=== PATIENT | female | born 1995 | race Hispanic/Latino ===

== ENCOUNTER 2016-10-22 14:18 | Emergency (ER) ==
[2016-10-22] MEDS ORDERED: ZOFRAN ODT PO ONE (14:56)
[2016-10-22] MEDS ORDERED: TYLENOL PO ONE (14:56)
[2016-10-22 15:05] LABS: MANUAL DIFF NEEDED? NO
--- NOTE | 2016-10-22 15:05 | PROVIDER DOCUMENTATION ---
HPI-General Adult - General Source: patient - History of Present Illness -Gen Adult Nature of Presenting Problems: 21 yo F 14 weeks with second child presents to ED with cc of cough, congestion, nausea, abdominal pain, low-grade fever, and possible flu exposure. Pt reports being on Tamiflu per supervisor [facility] for past 2 days with no relief. Pt states she has not been vomiting and has no vaginal bleeding. She reports some clear, thin vaginal discharge and dysuria. Pt states she is concerned for her and just wants to make sure everything is ok. Upon presentation to ED , pt is in no apparent distress and appears nontoxic. Location of Pain/Injury: reports: abdomen, pelvis Quality of Pain: reports: aching Severity: reports: moderate Onset/Duration: reports: abrupt, 3 days ago Timing: reports: still present Context/Activities at Onset: reports: none Modifying Factors: improves with: nothing Associated Symptoms: reports: cough, fatigue, sinus congestion/drainage, nausea . denies: shortness of breath, pain with inspiration, vomiting Similar Symptoms Previously?: No Recently seen or treated by another doctor?: Yes (OB prescribed tamiflu due to possible flu exposure) <Irene Renner - Last Filed: 10/22/16 15:00> <Rosanna Bradshaw - Last Filed: 10/22/16 16:36> - General Chief Complaint: Flu Symptoms Stated Complaint: FLU/14 WEAK PREG Time Seen by Provider: 10/22/16 14:43 Allergies/Adverse Reactions: Patient Allergies Allergy/AdvReac Type Severity Reaction Status Date / Time No Known Allergies Allergy Verified 01/27/15 20:52 Home Medications: Vit/Fe Fumarate/FA [ 1-1 Tablet] 1 tab PO DAILY 01/27/15 Review of Systems - Adult - REVIEW OF SYSTEMS - ADULT Constitutional: reports: fever (~99 at home; 99.5 ED). denies: chills Eyes: reports: no symptoms reported. denies: discharge, dry eyes Ears, Nose, Mouth & Throat: reports: no symptoms reported. denies: ear discharge, ear pain Cardiovascular: reports: no symptoms reported. denies: chest pain, edema Respiratory: reports: cough. denies: shortness of breath, wheezing Gastrointestinal: reports: abdominal pain, nausea. denies: vomiting Genitourinary: reports: dysuria, discharge (clear, thin) Musculoskeletal: reports: no symptoms reported. denies: bone pain, back pain Integumentary: reports: no symptoms reported. denies: hives, itching Neurological: reports: no symptoms reported. denies: ataxia, dizziness/vertigo Psychiatric: reports: no symptoms reported. denies: anxiety, depression Endocrine: reports: no symptoms reported. denies: cold intolerance, heat intolerance Hematologic/Lymphatic: reports: no symptoms reported. denies: blood clots, easy bruising Allergic/Immunologic: reports: no symptoms reported. denies: allergic reactions , eczema All Other Systems: Reviewed and Negative <Irene Renner - Last Filed: 10/22/16 15:00> Past History - Adult - PAST MEDICAL HISTORY-ADULT Review of Records: reports: Old Records Reviewed, Nursing Assessment Review, Medications Reviewed Major Childhood Illnesses: reports: denies history Cardiovascular: reports: denies history Respiratory: reports: denies history Gastrointestinal: reports: denies history Obstetrical/Gynecological: reports: denies history Genitourinary: reports: denies history Musculoskeletal: reports: denies history Neurological: reports: headaches/migraines Endocrine/Immune: reports: denies history Other Conditions: reports: denies history - IMMUNIZATION STATUS Childhood Immunizations: See Nurse Assessment Flu Vaccine: See Nurse Assessment - FAMILY HISTORY Family History: reviewed, not pertinent <Irene Renner - Last Filed: 10/22/16 15:00> Physical Exam-General - PHYSICAL EXAM-ADULT Initial Vital Signs Reviewed: Yes - CONSTITUTIONAL General Appearance: appears well, alert, no apparent distress - EYES Eyes: PERRL/EOMI, pink conjunctivae - HEAD, EARS, NOSE, MOUTH & THROAT HENMT: normocephalic/atraumatic, moist mucous membranes, normal ENT inspection, TMs normal - NECK Neck: non-tender, full range of motion, supple - RESPIRATORY Respiratory: chest non-tender, lungs clear, normal breath sounds - CARDIOVASCULAR Cardiovascular: normal peripheral pulses, regular rate, rhythm - GASTROINTESTINAL (ABDOMEN) Abdominal Exam: normal bowel sounds, non tender, soft, no organomegaly, tenderness (suprapubic) - GENITOURINARY Female Genitalia/Pelvic Exam: deferred - LYMPHATIC Lymphatic: no adenopathy - MUSCULOSKELETAL Back Exam: normal inspection, no CVA tenderness, no vertebral tenderness Extremity: normal range of motion, non-tender, normal gait - SKIN Integumentary: normal color, normal turgor, warm/dry - NEUROLOGIC Neurologic: grossly normal, no motor/sensory deficits - PSYCHIATRIC Psych/Mental Status: normal mood/affect, normal thought content, normal thought process, oriented x 3 <Irene Renner - Last Filed: 10/22/16 15:00> Progress - PLAN OF CARE/RESULTS Progress/Plan/Lab Results: Vital Signs Temp Pulse Resp BP Pulse Ox 10/22/16 14:22 99.5 F 128 H 18 124/61 100 No Known Allergies Allergy (Verified 01/27/15 20:52) Vit/Fe Fumarate/FA [ 1-1 Tablet] 1 tab PO DAILY 01/27/15 Ondansetron [Zofran] 4 mg PO Q6H PRN PRN #20 tablet 09/30/15 Laboratory 10/22/16 10/22/16 10/22/16 15:00 15:00 15:00 WBC 7.57 RBC 4.27 Hgb 12.1 Hct 34.8 L MCV 81.5 MCH 28.3 MCHC 34.8 RDW Std Deviation 13.7 Plt Count 227 MPV 9.7 Immature Gran % (Auto) 0.1 Neut % (Auto) 90.1 H Lymph % (Auto) 4.2 L Ashley % (Auto) 5.4 Eos % (Auto) 0.1 Baso % (Auto) 0.1 Immature Gran # (Auto) 0.01 Neut # (Auto) 6.81 H Lymph # (Auto) 0.32 L Ashley # (Auto) 0.41 Eos # (Auto) 0.01 Baso # (Auto) 0.01 Sodium 133 L Potassium 3.3 L Chloride 100 Carbon Dioxide 23 L Anion Gap 10 BUN 4 L Creatinine 0.4 L Estimated GFR/1.73 m2 > 60 BUN/Creatinine Ratio 10 Glucose 102 Calculated Osmolality 263 Calcium 9.2 Total Bilirubin 0.30 AST 13 ALT 8 L Alkaline Phosphatase 62 Total Protein 7.5 Albumin 3.9 Globulin 4.0 Albumin/Globulin Ratio 1.0 Ser , Semi-Qnt 30712.0 Influenza A (Rapid) Influenza B (Rapid) 10/22/16 14:27 WBC RBC Hgb Hct MCV MCH MCHC RDW Std Deviation Plt Count MPV Immature Gran % (Auto) Neut % (Auto) Lymph % (Auto) Ashley % (Auto) Eos % (Auto) Baso % (Auto) Immature Gran # (Auto) Neut # (Auto) Lymph # (Auto) Ashley # (Auto) Eos # (Auto) Baso # (Auto) Sodium Potassium Chloride Carbon Dioxide Anion Gap BUN Creatinine Estimated GFR/1.73 m2 BUN/Creatinine Ratio Glucose Calculated Osmolality Calcium Total Bilirubin AST ALT Alkaline Phosphatase Total Protein Albumin Globulin Albumin/Globulin Ratio Ser , Semi-Qnt Influenza A (Rapid) NEGATIVE Influenza B (Rapid) NEGATIVE Orders Category Date Time Status FHT [ Heart Tones] NOW Care 10/22/16 14:53 Active CBC WITH ELECTRONIC DIFF [HEME] Stat Lab 10/22/16 15:00 Completed COMPREHENSIVE METABOLIC PANEL [CHEM] Stat Lab 10/22/16 15:00 Completed Flu [INFLUENZA SCREEN PL] Stat Lab 10/22/16 14:27 Completed QUANT TEST Stat Lab 10/22/16 15:00 Completed Acetaminophen [Tylenol] Med 10/22/16 14:56 Discontinued 500 mg PO NOW ONE Ondansetron Odt [Zofran Odt] Med 10/22/16 14:56 Discontinued 4 mg PO NOW ONE <Rosanna Bradshaw - Last Filed: 10/22/16 16:36> Departure <Irene Renner - Last Filed: 10/22/16 15:00> - Departure Time of Disposition Order: 16:35 Certified Medical Emergency: Emergent <Rosanna Bradshaw - Last Filed: 10/22/16 16:36> - Departure DIAGNOSIS: Viral syndrome, UTI symptoms Qualifiers: Weeks of gestation: 11 weeks Qualified Code(s): Z3A.11 - 11 weeks gestation of Disposition: HOME 01 Condition: Stable Additional Instructions: Drink plenty of fluids and get plenty of rest ED Follow Up Instructions: You have been treated by a care provider in the Emergency Department. These instructions are being provided to you so you can have an understanding of how to care for yourself upon discharge. Upon discharge from the Emergency Department, you are responsible for making arrangements for follow-up care by a physician of your choice. Take all prescribed medications as directed. Return to the Emergency Department immediately for any new or worsening symptoms. You may call the Physician Referral phone number at [phone] to obtain a list of Physicians who are taking new patients. Prescriptions: Cephalexin [Keflex] 500 mg PO BID #20 capsule Ondansetron Odt [Zofran 8Mg Odt] 8 mg PO Q8H PRN PRN #20 tablet PRN Reason: Nausea Referrals: None,PCP [Primary Care Provider] - Attestation - Scribe Verification/Attestation Scribe:: Irene Renner Acting as Scribe for:: Rosanna Bradshaw Scribe documention review:: This chart was documented by a scribe and accurately reflects the service the provider performed and the decisions made by the provider. - Physician/ Mid-level Attestation Patient care was provided by Mid-level provider (RACING SECRETARY AND HANDICAPPER/PA):: Yes Mid-level provider:: Rosanna Bradshaw Mid-level documentation review:: The Mid-level provider documentation, treatment plan and medical decision making was reviewed by the physician who agrees with all treatment and medical decision making by the MLP. <Irene Renner - Last Filed: 10/22/16 15:00> - Physician/ Mid-level Attestation Patient care was provided by Mid-level provider (RACING SECRETARY AND HANDICAPPER/PA):: Yes Mid-level provider:: Rosanna Bradshaw Mid-level documentation review:: The Mid-level provider documentation, treatment plan and medical decision making was reviewed by the physician who agrees with all treatment and medical decision making by the MLP. <Rosanna Bradshaw - Last Filed: 10/22/16 16:36> Physician Attestation
[2016-10-22 15:13] LABS: BASO% 0.1 % (0.0-0.8); EOS# 0.01 X1000 (0.0-0.7); EOS% 0.1 % (0.0-10.0); HEMATOCRIT 34.8 % (37.0-47.0); HEMOGLOBIN 12.1 g/dL (12.0-16.0); IMM GRAN# 0.01 X1000 (0.0-0.04); IMM GRAN% 0.1 % (0.0-0.5); LYMPH# 0.32 X1000 (1.2-3.4); LYMPH% 4.2 % (20.5-51.1); MCH 28.3 PG (27-31); MCHC 34.8 g/dL (33-37); MCV 81.5 FL (81-99); MONO# 0.41 X1000 (0.11-0.59); MONO% 5.4 % (1.7-9.3); MPV 9.7 FL (7.4-10.4); NEUT% 90.1 % (42.2-75.2); PLT 227 X1000 (130-400); RBC 4.27 XMIL (4.2-5.4)
[2016-10-22 15:26] LABS: AGAP 10; ALBUMIN 3.9 g/dL (3.5-5.0); ALKALINE PHOSPHATASE 62 U/L (32-104); BUN 4 mg/dL (8-22); CALCIUM 9.2 mg/dL (8.8-10.2); CHLORIDE 100 mmol/L (98-107); COSMO 263; GOT 13 U/L (10-30); GPT 8 U/L (10-36); POTASSIUM 3.3 mmol/L (3.5-5.1); SODIUM 133 mmol/L (136-145); TCO2 23 mmol/L (25-35); TOTAL PROTEIN 7.5 g/dL (6.3-8.3)
[2016-10-22 17:25] VITALS: BP 113/64
== END 2016-10-22 17:47 | disposition home or self-care (01) ==
LOC: P.ED 14:18
DX: O98.511 Other viral diseases complicating pregnancy, first trimester (principal); B34.9 Viral infection, unspecified; O26.891 Other specified pregnancy related conditions, first trimester; R05 Cough; R09.81 Nasal congestion; R11.0 Nausea; R10.9 Unspecified abdominal pain; R50.9 Fever, unspecified; N89.8 Other specified noninflammatory disorders of vagina; R30.0 Dysuria; R10.819 Abdominal tenderness, unspecified site; O26.811 Pregnancy related exhaustion and fatigue, first trimester; Z3A.11 11 weeks gestation of pregnancy
CPT/HCPCS: 80053; 84702; 85025; 87804; 99283

== ENCOUNTER 2017-04-29 06:14 | Inpatient (IN) ==
[2017-04-29] MEDS ORDERED: TYLENOL PO ONE ×2 (06:40→06:45)
[2017-04-29] MEDS ORDERED: NS 1,000 ML IV ONE (06:46)
[2017-04-29 07:11] LABS: MANUAL DIFF NEEDED? NO
--- NOTE | 2017-04-29 07:17 | PROVIDER DOCUMENTATION ---
HPI-General Adult - General Chief Complaint: Fever Stated Complaint: FEVER,BODY ACHES Time Seen by Provider: 04/29/17 06:28 Source: patient, family Allergies/Adverse Reactions: Patient Allergies Allergy/AdvReac Type Severity Reaction Status Date / Time No Known Allergies Allergy Verified 04/29/17 06:24 Home Medications: Home Medication List Medication Instructions Recorded Confirmed Last Taken Type Vit/Fe Fumarate/FA 1 tab PO DAILY 01/27/15 04/29/17 01/27/15 08:00 History [ 1-1 Tablet] 1po Hydrocodone/Acetaminophen 1 tab PO DIRECTED PRN 04/29/17 04/29/17 04/28/17 History [Hydrocodon-Acetaminophen 5-325] - History of Present Illness -Gen Adult Nature of Presenting Problems: Reports fever, chills since yesterday with nausea/NICHOLS/abd pain and aching all over. Denies vomiting/diarrhea/SOB/LOC/neck pain/stiffness/dysuria. Pt vaginally delivered a 39 week baby X 2 weeks ago in [place]. Denies any significant PMHx. And no preg-related complications so far. Pt is A@O X 4, but warm to tough. Reports she took Tylenol at home. Reports headache, but the headache is not worse than her aching all over, and she has h/o migraines. Location of Pain/Injury: reports: head, abdomen, pelvis, generalized Pain Radiation: reports: no radiation Quality of Pain: reports: aching Severity: reports: moderate Onset/Duration: reports: 24 hours ago Timing: reports: still present, constant Context/Activities at Onset: reports: other (See above) Modifying Factors: improves with: nothing Associated Symptoms: reports: cough, fatigue, fever/chills, headaches, loss of appetite, malaise, weakness. denies: chest pain, nausea, rash, seizure, shortness of breath, syncope, vomiting, trouble walking Similar Symptoms Previously?: No Recently seen or treated by another doctor?: No Review of Systems - Adult - REVIEW OF SYSTEMS - ADULT Constitutional: reports: see HPI, chills, fever, fatique Eyes: reports: no symptoms reported Ears, Nose, Mouth & Throat: reports: no symptoms reported Cardiovascular: reports: no symptoms reported Respiratory: reports: no symptoms reported Gastrointestinal: reports: see HPI, abdominal pain, nausea. denies: diarrhea, difficulty swallowing, rectal bleeding, vomiting Genitourinary: reports: no symptoms reported Musculoskeletal: reports: no symptoms reported Integumentary: reports: no symptoms reported Neurological: reports: see HPI, headache/migraines, other (H/o migraines). denies: numbness, paresthesia, seizure Psychiatric: reports: no symptoms reported Endocrine: reports: no symptoms reported Hematologic/Lymphatic: reports: no symptoms reported Allergic/Immunologic: reports: no symptoms reported All Other Systems: Reviewed and Negative Past History - Adult - PAST MEDICAL HISTORY-ADULT Review of Records: reports: Old Records Reviewed, Nursing Assessment Review, Medications Reviewed, Social history reviewed & non-contributory. Major Childhood Illnesses: reports: denies history Cardiovascular: reports: denies history Respiratory: reports: denies history Gastrointestinal: reports: denies history Obstetrical/Gynecological: reports: denies history Genitourinary: reports: denies history Musculoskeletal: reports: denies history Neurological: reports: headaches/migraines Endocrine/Immune: reports: denies history Other Conditions: reports: denies history - IMMUNIZATION STATUS Childhood Immunizations: See Nurse Assessment Flu Vaccine: See Nurse Assessment - FAMILY HISTORY Family History: reviewed, not pertinent Physical Exam-General - PHYSICAL EXAM-ADULT Initial Vital Signs Reviewed: Yes - CONSTITUTIONAL General Appearance: appears well, alert, no apparent distress - EYES Eyes: PERRL/EOMI, pink conjunctivae - HEAD, EARS, NOSE, MOUTH & THROAT HENMT: normocephalic/atraumatic, moist mucous membranes, normal ENT inspection, TMs normal, pharynx normal - NECK Neck: non-tender, full range of motion, supple - RESPIRATORY Respiratory: chest non-tender, lungs clear, normal breath sounds, no pleuratic chest pain, no respiratory distress, no accessory muscle use - CARDIOVASCULAR Cardiovascular: normal peripheral pulses, regular rate, rhythm, no edema, no gallop - GASTROINTESTINAL (ABDOMEN) Abdominal Exam: normal bowel sounds, non tender, soft, no organomegaly, no pulsatile mass, tenderness, McBurney's point tenderness, Gay's sign, other ( Pt has moderate tenderness at RUQ and RLQ, and RUQ>RLQ.). negative: guarding, rigid, rebound, hernia, mass - MUSCULOSKELETAL Back Exam: normal inspection, no CVA tenderness, no vertebral tenderness Extremity: normal range of motion, non-tender, normal gait, normal inspection, no pedal edema, no calf tenderness - SKIN Integumentary: normal color, normal turgor, warm/dry, abrasion(s) - NEUROLOGIC Neurologic: no motor/sensory deficits, abnormal gait - PSYCHIATRIC Psych/Mental Status: normal mood/affect, normal thought content, normal thought process, oriented x 3 Progress - PLAN OF CARE/RESULTS Progress/Plan/Lab Results: Vital Signs - 8 hr 04/29/17 06:18 Temperature 101.4 F H Pulse Rate 116 H Respiratory Rate 18 Blood Pressure 117/75 O2 Sat by Pulse Oximetry 96 Laboratory Results - last 24 hr 04/29/17 06:34 Influenza A (Rapid) NEGATIVE Influenza B (Rapid) NEGATIVE Orders Category Date Time Status ABD/PELVIS/PULM ARTERIES [CT] Stat Exams 04/29/17 06:53 Ordered HEAD W/O CONTRAST [CT] Stat Exams 04/29/17 07:11 Ordered AMYLASE [CHEM] Stat Lab 04/29/17 05:50 Received BLOOD CULTURE [BLDCUL] Stat Lab 04/29/17 06:46 Ordered CBC WITH DIFF [HEME] Stat Lab 04/29/17 05:50 Results CMP [COMPREHENSIVE METABOLIC PANEL] [CHEM] Stat Lab 04/29/17 05:50 Received Flu [INFLUENZA SCREEN PL] Stat Lab 04/29/17 06:34 Completed LACTATE, PLASMA [CHEM] Stat Lab 04/29/17 05:50 Received LIPASE [CHEM] Stat Lab 04/29/17 05:50 Received UDS [URINE DRUG SCREEN PL] Stat Lab 04/29/17 07:[address] W/POSS RFLX CULT [URINALYSIS] Stat Lab 04/29/17 07:12 Ordered 0.9% Sodium Chloride Inj [Ns] 1,000 ml Med 04/29/17 06:46 Active IV 999 mls/hr Acetaminophen [Tylenol] Med 04/29/17 06:45 Discontinued 1,000 mg PO NOW ONE Acetaminophen [Tylenol] Med 04/29/17 06:40 Discontinued 650 mg PO NOW ONE EKG [EKG] Stat Ther 04/29/17 06:43 Ordered Result Diagrams: 04/29/17 05:50 04/29/17 05:50 - CT/MRI 1 CT Study: Abdomen, Head, Pelvis, Thorax CT Results: Prominent heart. Other details see reports - CONSULTS/PCP/HOSPITALIST Notification #1 *Consult/PCP/Hospitalist*: Dr. Flores Time Discussed: :53 Reason/Comments: Will be an clinical science consultant #2 Consult: Dr. Loza Time Discussed: :53 Consult Disposition: Will see in ED, Admit Departure - Departure Date of Disposition Decision: 04/29/17 Time of Disposition Decision: 09:54 DIAGNOSIS: fever, Enlarged heart Disposition: ADMITTED INPATIENT 09 Certified Medical Emergency: Emergent Condition: Stable Referrals and Follow-Ups: None,PCP [Primary Care Provider] - - Critical Care Note This patient required my direct & personal management of CC.: No
[2017-04-29 07:18] LABS: BASO% 0.5 % (0.0-0.8); EOS# 0.19 X1000 (0.0-0.7); EOS% 1.5 % (0.0-10.0); HEMOGLOBIN 10.7 g/dL (12.0-16.0); IMM GRAN# 0.03 X1000 (0.0-0.04); IMM GRAN% 0.2 % (0.0-0.5); LYMPH# 0.93 X1000 (1.2-3.4); LYMPH% 7.4 % (20.5-51.1); MCH 23.1 PG (27-31); MCHC 31.5 g/dL (33-37); MCV 73.3 FL (81-99); MONO# 0.76 X1000 (0.11-0.59); MONO% 6.1 % (1.7-9.3); MPV 9.6 FL (7.4-10.4); NEUT% 84.3 % (42.2-75.2); PLT 411 X1000 (130-400); RBC 4.64 XMIL (4.2-5.4)
--- NOTE | 2017-04-29 07:19 | EKG Report ---
Test Performed on : 04/29/2017 07:14:21 AM Test Reason : FEVER Blood Pressure : / mmHG Vent. Rate : 098 BPM Atrial Rate : 098 BPM P-R Int : 142 ms QRS Dur : 082 ms QT Int : 336 ms P-R-T Axes : 064 045 049 degrees QTc Int : 428 ms Normal sinus rhythm. Normal ECG When compared with ECG of 29-APR-2017 07:13, (Unconfirmed) No significant change was found Unconfirmed Result
[2017-04-29 07:26] LABS: UR AMPHETAMINES QUAL NONE DETECTED (NONE DETECT); UR BARBITUATES QUAL NONE DETECTED (NONE DETECT); UR BENZODIAZEPIN QUAL NONE DETECTED (NONE DETECT); UR CANNABINOIDS QUAL NONE DETECTED (NONE DETECT); UR COCAINE QUAL NONE DETECTED (NONE DETECT); UR MDMA QUAL NONE DETECTED (NONE DETECT); UR METHADONE QUAL NONE DETECTED (NONE DETECT); UR METHAMPHETAMINE QUAL NONE DETECTED (NONE DETECT); UR OPIATES QUAL PRESUMPTIVE POSITIVE (NONE DETECT); UR OXYCODONE QUAL NONE DETECTED (NONE DETECT); UR PCP QUAL NONE DETECTED (NONE DETECT); UR TCA QUAL NONE DETECTED (NONE DETECT)
[2017-04-29 07:52] LABS: AMYLASE 25 U/L (20-200); LIPASE 21 U/L (13-60)
[2017-04-29 08:00] LABS: AGAP 12; ALBUMIN 3.7 g/dL (3.5-5.0); ALKALINE PHOSPHATASE 117 U/L (32-104); BUN 9 mg/dL (8-22); CHLORIDE 98 mmol/L (98-107); COSMO 263; GOT 25 U/L (10-30); GPT 36 U/L (10-36); POTASSIUM 3.5 mmol/L (3.5-5.1); SODIUM 132 mmol/L (136-145); TCO2 22 mmol/L (25-35); TOTAL PROTEIN 7.8 g/dL (6.3-8.3)
[2017-04-29 08:04] LABS: BILIRUBIN URINE NEGATIVE (NEGATIVE); BLOOD URINE 3+ (NEGATIVE); CLARITY CLEAR (CLEAR); COLOR YELLOW; GLUCOSE URINE NEGATIVE (NEGATIVE); LEUKOCYTES URINE 1+ (NEGATIVE); NITRITE URINE NEGATIVE (NEGATIVE); PROTEIN URINE TRACE mg/dL (NEGATIVE); UROBILINOGEN URINE NORMAL
[2017-04-29] MEDS ORDERED: ZOSYN 3.375 GM/NS 3.375 GM/50 ML IVPB IV ONE (08:06)
[2017-04-29 08:47] LABS: URINE CULTURE PL NEEDED? YES; URINE EPITHELIAL CELLS <10 /HPF (<10); URINE SOURCE CLEAN CATCH
--- NOTE | 2017-04-29 09:35 | Diag Imaging Result Doc PS360 ---
EXAM: ABD/PELVIS/PULM ARTERIES HISTORY: X 2 weeks, high fever, CP/Abd pain TECHNIQUE: Coronal MIPS obtained for the CT chest images COMPARISON: None. FINDINGS: Chest: No pleural effusions. The heart is prominent. Although there is suboptimal timing, no filling defects are seen within the pulmonary arteries or their major branches. There is basilar atelectasis. No consolidation. No bronchiectasis. Abdomen and pelvis: There is mild fatty infiltration of the liver. No focal hepatic abnormality. No calcified gallstones or adjacent inflammation. Normal spleen, adrenal glands, and pancreas. There is a tiny left renal cyst. Kidneys are otherwise normal. No hydronephrosis. Normal aorta. The left renal vein goes behind the aorta. This is a normal variant. No bowel obstruction. The uterus is prominent. Questionable debris in the uterine cavity. The urinary bladder is distended and is normal. No free fluid in the pelvis. IMPRESSION: Chest: No PE. No pneumonia. Abdomen and pelvis: Prominent uterus possibly with debris in the uterine cavity. Electronically signed by Ever Pan 04/29/2017 9:33 AM
--- NOTE | 2017-04-29 09:36 | Diag Imaging Result Doc PS360 ---
EXAM: HEAD W/O CONTRAST HISTORY: Headache TECHNIQUE: Dose reduction protocol COMPARISON: None. FINDINGS: No parenchymal hemorrhage. No epidural or subdural hematoma. No subarachnoid hemorrhage. No mass identified on this noncontrasted exam. No hydrocephalus. No sinus opacification. IMPRESSION: No hemorrhage. Negative brain CT without contrast. Electronically signed by Ever Pan 04/29/2017 9:34 AM
[2017-04-29] MEDS ORDERED: FLAGYL 500 MG/NS 500 MG/100 ML IVPB IV ONE (09:55)
[2017-04-29] MEDS ORDERED: TYLENOL PO PRN ×2 (11:57→15:30)
[2017-04-29] MEDS ORDERED: GENTAMICIN IV PER PHARMACY MISC SCH (15:30)
[2017-04-29] MEDS ORDERED: ZOFRAN IV PRN (15:30)
[2017-04-29] MEDS: NORCO-5 PO PRN ×2 (15:32→21:28)
[2017-04-29] MEDS: CLINDAMYCIN 900 MG/NS 900 MG/50 ML IVPB IV SCH ×2 (17:08→21:28)
[2017-04-29] MEDS: GENTAMICIN 160 MG in NS 100 ML IV SCH (18:20)
[2017-04-30] MEDS: CLINDAMYCIN 900 MG/NS 900 MG/50 ML IVPB IV SCH ×2 (00:22→08:16)
[2017-04-30] MEDS: GENTAMICIN 160 MG in NS 100 ML IV SCH ×2 (00:22→09:53)
[2017-04-30 06:12] LABS: HEMATOCRIT 31.9 % (37.0-47.0); HEMOGLOBIN 9.7 g/dL (12.0-16.0); MCH 22.7 PG (27-31); MCHC 30.4 g/dL (33-37); MCV 74.7 FL (81-99); MPV 9.4 FL (7.4-10.4); RBC 4.27 XMIL (4.2-5.4)
[2017-04-30 06:41] LABS: AGAP 8; BUN 11 mg/dL (8-22); CHLORIDE 105 mmol/L (98-107); COSMO 275; SODIUM 138 mmol/L (136-145); TCO2 25 mmol/L (25-35)
[2017-04-30] MEDS ORDERED: PRILOSEC PO SCH (07:00)
[2017-04-30 08:11] VITALS: BP 109/51
--- NOTE | 2017-04-30 15:16 | HISTORY AND PHYSICAL ---
CHIEF COMPLAINT: Fever and body aches. HISTORY OF PRESENT ILLNESS: This is a 21-year-old female who is 2 weeks who presented to the emergency room complaining of fevers over 101 with nausea and generalized aching. She states that over the last 24 hours, she began to have generalized body aches and headache and started to develop fevers. They have been over 101 at home. She denies any respiratory complaints, any nausea, vomiting, or any complaints. She was noted to have a white count of 12.5. She also complains of a headache. CT of the head was performed which revealed no hemorrhage, negative brain CT. PAST MEDICAL HISTORY: Migraine headaches. PAST SURGICAL HISTORY: Dilatation and curettage, January 2015. Vaginal delivery in April 2017. SOCIAL HISTORY: She denies alcohol, tobacco, or illicit drug use. ALLERGIES: No known drug allergies. HOME MEDICATIONS: [place] 5 as directed. vitamin 1 daily. REVIEW OF SYSTEMS: A 14 point review of systems is discussed with patient with pertinent positives stated in the HPI. She denied chest pain, cough. Shortness of breath, dyspnea on exertion, PND, orthopnea, palpitations, dizziness, syncope, vomiting, diarrhea, constipation, black or bloody vomitus, black or bloody stools, hematuria, dysuria, frequency, urgency. PHYSICAL EXAMINATION: GENERAL: This is a 21-year-old female who is sitting up in the bed, in no distress. VITAL SIGNS: Blood pressure is 113/62 with a heart rate of 100, respirations are 18, temperature is 101 degrees oral with a room air saturation of 99-100%. HEENT: Head is normocephalic, atraumatic. Pupils equal, round, react to light. EOMs are intact. Sclerae anicteric. Mucous membranes are moist. NECK: Supple. Trachea midline. CARDIOVASCULAR: Regular rate and rhythm. S1, S2 appreciated. PULMONARY: Breath sounds are clear with no increased work of breathing noted. GASTROINTESTINAL: Abdomen is soft, nontender, nondistended, with bowel sounds in all 4 quadrants. BACK: No CVAT. No spine tenderness. MUSCULOSKELETAL: Good range of motion of joints. SKIN: Warm and dry with no rashes or lesions noted. EXTREMITIES: No clubbing, cyanosis, or edema. Calves are nontender. Pulses are palpable x4. NEUROLOGIC: She is alert and oriented x3. Cranial nerves 2-12 grossly intact. DIAGNOSTICS: WBC is 12.5 with a hemoglobin of 10, hematocrit 34, and platelets of 411,000. Sodium 132, potassium 3.5, BUN 9, creatinine 0.7 with a glucose of 94. Urinalysis is positive for blood with 10-20 microscopic white blood cells noted. Blood cultures, urine culture pending. ASSESSMENT AND PLAN: 1. Fever. Causes could be multifactorial. This could be a viral component. Also endometritis has to be considered as well as urinary tract infection as she is status post vaginal delivery. Cultures are pending. We will start antibiotic coverage with clindamycin and gentamicin and follow. 2. Leukocytosis. We will continue with antibiotics. Trend labs. 3. Hyponatremia. We will give intravenous hydration. 4. Headache. We will give pain medication. Of note, her CT scan was negative. 5. DVT prophylaxis. We will use SCDs and GI prophylaxis. Prilosec. Further treatments pending hospital course. Dictated by TRACEY Jimenez for Sd Loza MD cc: TRACEY Jimenez MD
--- NOTE | 2017-05-01 07:56 | DISCHARGE SUMMARY ---
ADMISSION DATE: 04/29/2017 DISCHARGE DATE: 04/30/2017 DIAGNOSES: 1. Fever, resolved. 2. Leukocytosis, resolved. MICROBIOLOGY: Urine culture revealed no growth. Blood cultures are pending. DIAGNOSTICS: 1. CT of the abdomen and pelvis revealed no PE and no pneumonia. Abdomen and pelvis, prominent uterus with debris in the uterine cavity. 2. CT of the head revealed no hemorrhage. Negative brain CT without contrast. HOSPITAL COURSE: Ms. Hoang is approximately 2 weeks . She presented to the ER complaining of generalized body aches and fever. She was found to have a white blood cell count of 12.5. She had negative urine culture. Blood cultures are pending. She was placed on gentamicin and clindamycin IV as endometritis certainly has to be in her differential diagnoses. White count did come back to normal within 24 hours. She complained of a headache. CT of the head was negative. Of note, she did have a fever of 101.4. This has resolved. We did speak with Dr. Duenas in [facility] regarding CT scan of the abdomen with the read of prominent uterus with debris in the uterine cavity, who stated that this is expected with 2 weeks . Thankfully, her symptoms have resolved. White count has resolved and she is able to be discharged home. DISCHARGE PHYSICAL EXAMINATION: Cardiovascular: Regular rate and rhythm. S1 and S2 are appreciated. Pulmonary: Breath sounds are clear with no increased work of breathing noted. Gastrointestinal: Abdomen is soft, nontender, nondistended with bowel sounds in all 4 quadrants. Extremities: No clubbing, cyanosis, or edema. Calves are nontender. Pulses are palpable x4. Neurologic: She is alert and oriented x3. Discharge Vital Signs: Blood pressure is 109/51, with a heart rate of 70, temperature is 98.7 degrees, with a room air saturation of 98-100%. DISCHARGE MEDICATIONS: 1. Augmentin 875/125 one b.i.d. for 10 days. 2. vitamin daily. 3. [place] 5/325, she can continue this as directed by OB physician. FOLLOWUP: 1. She needs to follow up with her OB physician as directed on discharge from the hospital. 2. She has been given the number to [facility] to schedule followup to obtain primary care. DISPOSITION: She is being discharged home in stable condition with family members. TIME SPENT: This is a greater than 30 minute discharge. Dictated by Val J. Slaten, VAN DRIVER for Sd Loza MD cc: TRACEY Jimenez MD
== END 2017-04-30 12:25 | disposition home or self-care (01) ==
LOC: P.ED 06:14 → P.MEDSURG 06:14 → OBSVTOIN 10:25 → P.MEDSURG 10:55
PROVIDERS: ATTEND Family Medicine